=== PATIENT | female | born 1960 | race Caucasian/White ===

== ENCOUNTER → 2020-02-16 13:56 | Outpatient (CLI) | payer OTHER, SELFPAY ==
--- NOTE | ~2020-02-16 | CT_ITS ---
EXAMINATION: CT lumbar spine wo con DATE: 02/16/2020 14:16 INDICATION: Chronic low back pain. Right-sided sciatica. TECHNIQUE: Computed tomography (CT) of the lumbar spine was performed without intravenous contrast. A utomated exposure control and iterative reconstruction technique were employed. The dose-length produ ct was 393.17 mGy-cm. COMPARISON: Lumbar spine CT 05/06/2019 FINDINGS: There are changes of cholecystectomy. Bone alignment is normal. Vertebral body heights are normal. There is mildly decreased disc height at L1-L2 and L5-S1. The following disc levels are speci fically discussed: L1-L2: The disc does not extend beyond the endplate margin. There is mild right and moderate left fac et joint osteoarthritis. There is no neural foraminal stenosis. There is no central canal stenosis. L2-L3: The disc does not extend beyond the endplate margin. There is mild bilateral facet joint osteo arthritis. There is no neural foraminal stenosis. There is no central canal stenosis. L3-L4: The disc is bulging. There is mild bilateral facet joint osteoarthritis. There is mild left ne ural foraminal stenosis. There is mild central canal stenosis. L4-L5: The disc is bulging. There is severe bilateral facet joint osteoarthritis. There is mild bilat eral neural foraminal stenosis. There is mild central canal stenosis. L5-S1: The disc is bulging. There is mild bilateral facet joint osteoarthritis. There is mild bilater al neural foraminal stenosis. There is mild central canal stenosis. IMPRESSION: 1. Mild lumbar spondylosis, stable from 05/06/2019. Reviewed, dictated and finalized at location A.
== END ==
PROVIDERS: PCP Emergency Medicine; Visit Provider Emergency Medicine
DX: M54.31 Sciatica, right side (principal); M47.896 Other spondylosis, lumbar region
CPT/HCPCS: 72131

== ENCOUNTER → 2020-04-06 12:15 | Outpatient (CLI) | payer OTHER, SELFPAY ==
--- NOTE | ~2020-04-06 | MM_ITS ---
EXAMINATION: MM screening arron BI w chloé HISTORY: Screening TECHNIQUE: Craniocaudal and mediolateral oblique 3-D tomosynthesis images were obtained and synthetic 2-D images were generated. CAD analysis was submitted and interpreted. COMPARISON: Comparison to multiple prior studies sequentially, with oldest reviewed study dated 04/14. BREAST PARENCHYMAL COMPOSITION: There are scattered areas of fibroglandular density. FINDINGS: There is no evidence of suspicious mass, calcification, or architectural distortion to sugg est malignancy in either breast. There has been no suspicious interval change. IMPRESSION: 1. No mammographic evidence of malignancy. 2. Recommend routine screening mammography in one year. BI-RADS Category 1: Negative Reviewed, dictated and finalized at location A.
--- NOTE | ~2020-04-06 | DEXA_ITS ---
Bone Density Report Name: Suman Pedro Age: 59 Sex: Female Ethnicity: White Date of : 1960 Indication: postmenopausal; screening for osteoporosis; Referring Provider: GRZEGORZ SAUCEDO Study: Bone densitometry was performed. Exam Date: April 06, 2020 Accession number: [id number] Bone Density: Region BMD T-score Z-score Classification AP Spine (L1-L4) 1.149 0.9 2.2 Normal Femoral Neck (Left) 0.852 0.0 1.2 Normal Total Hip (Left) 1.000 0.5 1.3 Normal Femoral Neck (Right) 0.784 -0.6 0.6 Normal Total Hip (Right) 0.974 0.3 1.1 Normal Total Hip Mean 0.987 0.4 1.2 Normal World Health Organization criteria for BMD impression classify patients as: Normal (T-score at or above -1.0), Osteopenia (T-score between -1.0 and -2.5), or Osteoporosis (T-score at or below -2.5). 10-year Fracture Risk: FRAX not reported because: All T-scores for Spine Total, Hip Total, Femoral Neck at or above -1.0 Treated for osteoporosis Clinical Information Provided by Patient: Is being treated for osteoporosis Has used the following medications: HRT (i.e. estrogen/hormone therapy), Vitamin D, Armourthyroid Patient maximum height was 60 Menopause Age: 50 No regular weight bearing exercise Does not regularly consume dairy products Drinks caffeinated beverages Onset of menses at age 14 Number of children 1 Impression: The patient has normal bone mass. Discussion: It is important to ask patients whether they are taking their medications and to encourage continued and appropriate compliance with their osteoporosis therapies to reduce fracture risk. It is also important to review their risk factors and encourage appropriate calcium and vitamin D intakes, exercise, fall prevention and other lifestyle measures. Follow-Up: Consider a repeat BMD and Vertebral Fracture Assessment (VFA) exam in 2 years or sooner if medically necessary, to reassess this patient's status. Reported by: MILLI on 04/06/2020 1:34:00 PM. Reviewed, dictated and finalized at location AJanis TRAN
== END ==
PROVIDERS: PCP Emergency Medicine; Visit Provider Obstetrics & Gynecology
DX: Z12.31 Encounter for screening mammogram for malignant neoplasm of breast (principal); Z13.820 Encounter for screening for osteoporosis; Z78.0 Asymptomatic menopausal state
CPT/HCPCS: 77063; 77067; 77080

== ENCOUNTER 2020-11-29 12:55 | Outpatient (CLI) | payer BC, SELFPAY ==
--- NOTE | 2020-11-29 15:00 | NEURO_ITS ---
Impression: # Complains of numbness in left forearm. # Evolving left Carpal Tunnel Syndrome. # No ulnar neuropathy. # Needle/EMG exam not requested. Nerve Conduction Studies Anti Sensory Summary Table Stim Site NR Peak (ms) P-T Amp (?V) Site1 Site2 Delta-P (ms) Dist (cm) Robel (m/s) Left Median Anti Sensory (2-3nd Digit) Wrist 3.0 90.9 Wrist 2-3nd Digit 3.0 14.0 47 Wrist 3.0 92.2 Wrist 2-3nd Digit 3.0 14.0 47 Left Radial Anti Sensory (Base 1st Digit) Wrist 2.2 37.3 Wrist Base 1st Digit 2.2 0.0 Left Ulnar Anti Sensory (5th Digit) Wrist 2.6 49.5 Wrist 5th Digit 2.6 14.0 54 Motor Summary Table Stim Site NR Onset (ms) O-P Amp (mV) Site1 Site2 Delta-0 (ms) Dist (cm) Robel (m/s) Left Median Motor (Abd Poll Brev) Wrist 3.3 4.1 Elbow Wrist 4.0 24.0 60 Elbow 7.3 3.4 Left Ulnar Motor (Abd Dig Minimi) Wrist 2.6 5.2 A Elbow Wrist 4.5 26.0 58 A Elbow 7.1 4.3 F Wave Studies NR F-Lat (ms) L-R F-Lat (ms) Left Median (Mrkrs) (Abd Poll Brev) 25.70 Left Ulnar (Mrkrs) (Abd Dig Min) 25.70 MTDD
== END 2020-11-29 12:56 | disposition home or self-care (01) ==
LOC: ANHNEURO 12:57
PROVIDERS: PCP Emergency Medicine; Visit Provider Plastic Surgery
DX: R20.2 Paresthesia of skin (principal); G56.02 Carpal tunnel syndrome, left upper limb
CPT/HCPCS: 95909

== ENCOUNTER → 2021-04-10 12:05 | Outpatient (CLI) | payer BC, SELFPAY ==
--- NOTE | ~2021-04-10 | MM_ITS ---
EXAMINATION: MM screening arron BI w chloé HISTORY: Screening mammogram TECHNIQUE: Craniocaudal and mediolateral oblique 3-D tomosynthesis images were obtained and synthetic 2-D images were generated. CAD analysis was submitted and interpreted. COMPARISON: 04/06/2020, 11/02/2018, 10/27/2017 bilateral digital screening mammogram examinations BREAST PARENCHYMAL COMPOSITION: There are scattered areas of fibroglandular density. FINDINGS: Occasional bilateral benign calcifications. There is no evidence of suspicious mass, calcif ication, or architectural distortion to suggest malignancy in either breast. There has been no suspic ious interval change. IMPRESSION: 1. No mammographic evidence of malignancy. 2. Recommend routine screening mammography in one year. BI-RADS Category 2: Benign finding(s). Reviewed, dictated and finalized at location A.
== END ==
PROVIDERS: Visit Provider Obstetrics & Gynecology
DX: Z12.31 Encounter for screening mammogram for malignant neoplasm of breast (principal)
CPT/HCPCS: 77063; 77067

== ENCOUNTER → 2022-12-12 10:17 | Outpatient (CLI) | payer OTHER, SELFPAY ==
--- NOTE | ~2022-12-12 | MM_ITS ---
EXAMINATION: MM screening [facility] BI w chloé HISTORY: Screening mammogram TECHNIQUE: Craniocaudal and mediolateral oblique 3-D tomosynthesis images were obtained and synthetic 2-D images were generated. CAD analysis was submitted and interpreted. COMPARISON: 04/10/2021, 04/06/2020, 11/02/2018 BREAST PARENCHYMAL COMPOSITION: There are scattered areas of fibroglandular density. FINDINGS: RIGHT BREAST: There is a possible mass in middle/posterior third of the outer, slightly lower breast approximately 5 cm deep to the nipple. LEFT BREAST: An asymmetry is present in the posterior third outer breast 5.5 cm from the nipple on th e craniocaudal view. IMPRESSION: 1. Bilateral breast findings as above. 2. Additional mammographic views and possible breast ultrasound are recommended. BI-RADS Category 0: Incomplete: Needs additional imaging evaluation. Reviewed, dictated and finalized at location A. IMPRESSION: 1. Bilateral breast findings as above. 2. Additional mammographic views and possible breast ultrasound are recommended . BI-RADS Category 0: Incomplete: Needs additional imaging evaluation.
== END ==
PROVIDERS: PCP Family Medicine; Visit Provider Family Medicine
DX: Z12.31 Encounter for screening mammogram for malignant neoplasm of breast (principal); R92.8 Other abnormal and inconclusive findings on diagnostic imaging of breast
CPT/HCPCS: 77063; 77067

== ENCOUNTER → 2023-01-09 09:17 | Outpatient (CLI) | payer OTHER, SELFPAY ==
--- NOTE | ~2023-01-09 | MMUS_ITS ---
EXAMINATION: MM diagnostic arron BI w chloé, US breast BI limited HISTORY: Follow-up breast asymmetries TECHNIQUE: Additional 3-D tomosynthesis images of the breasts were performed and synthetic 2-D images were generated. CAD analysis was submitted and interpreted. High resolution limited bilateral breast ultrasound was performed. COMPARISON: 12/12/2022 BREAST PARENCHYMAL COMPOSITION: Breast composed of scattered areas of fibroglandular density FINDINGS: MAMMOGRAPHIC FINDINGS: There is a persistent mass in the mid outer aspect of the right breast, middle third, partially obscu red by fibroglandular tissue. There is suggestion of marginal spiculations on the spot CC view. No ma mmographic evidence for malignancy in the left breast. ULTRASOUND: Limited right breast ultrasound: At 9:00, 4.5 cm from the nipple there is an irregular shaped antipar allel hypoechoic mass measuring 6 mm maximum dimension with posterior shadowing and no internal vascu larity. No other discrete masses are identified in the right breast. Limited left breast ultrasound: Normal heterogeneous echotexture without focal solid or cystic mass. IMPRESSION: 1. Irregular shaped hypoechoic 6 mm right breast mass at 9:00, 4.5 cm from the nipple, corresponding to the mammographic abnormality. 2. Ultrasound-guided right breast biopsy recommended. BI-RADS category 4, suspicious findings. Reviewed, dictated and finalized at location A. IMPRESSION: 1. Irregular shaped hypoechoic 6 mm right breast mass at 9:00, 4.5 cm from the nipple, corresponding to the mammographic abnormality. 2. Ultrasound-guided right breast biopsy recommended. BI-RADS category 4, suspicious findings.
== END ==
PROVIDERS: PCP Family Medicine; Visit Provider Family Medicine
DX: R92.8 Other abnormal and inconclusive findings on diagnostic imaging of breast (principal)
CPT/HCPCS: 76642; 77062; 77066; G0279

== ENCOUNTER 2024-06-29 11:28 | Outpatient (CLI) | payer OTHER, SELFPAY ==
--- NOTE | ~2024-06-29 | MM_ITS ---
EXAMINATION: MM screening arron BI w chloé HISTORY: Screening. Right breast cancer status post lumpectomy. TECHNIQUE: Craniocaudal and mediolateral oblique 3-D tomosynthesis images were obtained and synthetic 2-D images were generated. CAD analysis was submitted and interpreted. COMPARISON: Comparison to multiple prior studies sequentially, with oldest reviewed study dated 10/27. BREAST PARENCHYMAL COMPOSITION: Not dense: There are scattered areas of fibroglandular density. FINDINGS: There are lumpectomy changes in the right breast in the upper outer quadrant. There is no e vidence of suspicious mass, calcification, or architectural distortion to suggest malignancy in eithe r breast. There has been no suspicious interval change. IMPRESSION: 1. No mammographic evidence of malignancy. 2. Recommend routine screening mammography in one year. BI-RADS CATEGORY 2 - BENIGN FINDINGS Reviewed, dictated and finalized at location B. 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
== END 2024-06-29 11:29 | disposition home or self-care (01) ==
LOC: MICIMG 11:29
PROVIDERS: PCP Family Medicine; Visit Provider Internal Medicine
DX: Z12.31 Encounter for screening mammogram for malignant neoplasm of breast (principal)
CPT/HCPCS: 77063; 77067